=== PATIENT | male | born 1960 | race Caucasian/White ===

== ENCOUNTER 2016-11-18 13:20 | Emergency (ER) | payer OTHER ==
[~2016-11-18] VITALS: Ht 180.3 cm; Wt 94.3 kg
[2016-11-18] MEDS ORDERED: LATUDA80 MG PO (13:34)
[2016-11-18] MEDS ORDERED: CYMBALTA60 MG PO (13:34)
[2016-11-18] MEDS ORDERED: MINIPRESS2 MG PO (13:35)
== END 2016-11-18 15:01 | disposition home or self-care (01) ==
LOC: ED 13:20
DX: Z02.89 Encounter for other administrative examinations (principal); F10.20 Alcohol dependence, uncomplicated; F17.200 Nicotine dependence, unspecified, uncomplicated; Z90.49 Acquired absence of other specified parts of digestive tract; Z79.899 Other long term (current) drug therapy; Z86.11 Personal history of tuberculosis
CPT/HCPCS: 71020; 99283

== ENCOUNTER 2016-12-13 18:17 | Emergency (ER) | payer OTHER ==
[~2016-12-13] VITALS: Ht 180.3 cm; Wt 108.9 kg
[~2016-12-13 18:17] MED LIST: CYMBALTA60 MG PO; LATUDA80 MG PO; MINIPRESS2 MG PO
[2016-12-13] MEDS ORDERED: MINIPRESS1 MG PO (19:54)
[2016-12-13] MEDS ORDERED: TRIHEXYPHENIDYL2 MG PO (19:55)
[2016-12-13] MEDS ORDERED: DULOXETINE HCL30 MG PO (19:56)
[2016-12-13] MEDS ORDERED: SERTRALINE HCL100 MG PO (19:56)
== END 2016-12-13 22:45 | disposition home or self-care (01) ==
LOC: ED 18:17
DX: S80.11XA Contusion of right lower leg, initial encounter (principal); F17.200 Nicotine dependence, unspecified, uncomplicated; Z90.49 Acquired absence of other specified parts of digestive tract; Z79.899 Other long term (current) drug therapy; X50.9XXA Other and unspecified overexertion or strenuous movements or postures, initial encounter; Y93.67 Activity, basketball
CPT/HCPCS: 73590; 99283

== ENCOUNTER 2016-12-21 17:26 | Emergency (ER) | payer OTHER ==
[~2016-12-21] VITALS: Ht 180.3 cm; Wt 108.9 kg
[~2016-12-21 17:26] MED LIST changes: +DULOXETINE HCL30 MG PO; +MINIPRESS1 MG PO; +SERTRALINE HCL100 MG PO; +TRIHEXYPHENIDYL2 MG PO
[2016-12-21] MEDS ORDERED: NORCO 10-325 T1 EACH PO (18:51)
--- NOTE | 2016-12-22 18:46 | CONS ---
[facility] [address], [place] [address] Signed DATE OF CONSULTATION: 12/21/16 HISTORY OF PRESENT ILLNESS I was called the emergency room to see Mr. Ruelas because of concerns for possible compartment syndrome in the right leg. In talking to the patient, he says really about a week or 10 days ago, he injured his leg when he was playing basketball. He said he fell awkwardly on his leg. It sounds as if he has been to the emergency room 1 or 2 times with what sounds like an anterolateral hematoma over his calf. Because of concerns of increasing pain and a significant pain response to motion, orthopedic consultation was requested. PHYSICAL EXAMINATION On examination, the patient is lying comfortably in his gurney. The leg is gently contused with an obvious hematoma anterolaterally over the proximal tibia. However, all the compartments are relatively soft to touch. There is no significant induration over the anterior, lateral, or posterior compartments. Although, he complains of pain with motion of his toes, there is no pallor. There is no paresthesias and he certainly has a bounding pulse. After sterile prep, we assembled the intracompartmental pressure measuring device and measured his anterior compartment pressure at 15 and that rapidly dropped down to about 11. I conferred with the emergency room physician and I conveyed my thoughts that this is unlikely to represent a significant compartment syndrome. We did not test the other compartments because they were even softer and more supple than the anterior compartment. A light sterile dressing was applied and he will be discharged with some pain medication. MD JOSEPHINE Restrepo/Kris /[id number] Electronically Signed By: SALVADOR WEINSTEIN MD 12/22/16 1846 PATIENT NAME: LAMBERT RUELAS CONSULTATION DATE OF : 62 PHYSICIAN: SALVADOR WEINSTEIN MD REPORT #: [id number] REPORT IS CONFIDENTIAL AND NOT TO BE RELEASED WITHOUT AUTHORIZATION
== END 2016-12-21 19:23 | disposition home or self-care (01) ==
LOC: ED 17:26
DX: S80.11XS Contusion of right lower leg, sequela (principal); F17.200 Nicotine dependence, unspecified, uncomplicated; Z90.49 Acquired absence of other specified parts of digestive tract; Z79.899 Other long term (current) drug therapy; X58.XXXS Exposure to other specified factors, sequela; Y93.67 Activity, basketball
CPT/HCPCS: 96372; 99283; J1885

== ENCOUNTER 2016-12-29 09:56 | Emergency (ER) | payer OTHER ==
[~2016-12-29] VITALS: Ht 180.3 cm; Wt 108.9 kg
[~2016-12-29 09:56] MED LIST changes: +NORCO 10-325 T1 EACH PO
[2016-12-29] MEDS ORDERED: HYDROCODON-ACE1 EAC8 PO (10:09)
== END 2016-12-29 12:15 | disposition home or self-care (01) ==
LOC: ED 09:56
DX: S80.11XA Contusion of right lower leg, initial encounter (principal); F17.200 Nicotine dependence, unspecified, uncomplicated; W22.8XXA Striking against or struck by other objects, initial encounter; Z90.49 Acquired absence of other specified parts of digestive tract; Z79.899 Other long term (current) drug therapy
CPT/HCPCS: 76882; 80053; 85025; 85610; 85730; 99284